=== PATIENT | female | born 2005 | race Caucasian/White ===

== ENCOUNTER 2024-04-01 09:05 | Observation (INO) ==
[2024-04-01] MEDS: SODIUM CHLORIDE 0.9% 1,000 ML IV STA (09:53)
[2024-04-01] MEDS: diphenhydrAMINE 50 MG/ML VIAL IV STA ×2 (09:56→12:05)
[2024-04-01] MEDS: ONDANSETRON INJ 2 MG/ML 2 ML VIAL IV STA (09:57)
[2024-04-01] MEDS: METOCLOPRAMIDE HCL INJ 5 MG/ML 2 ML VIAL IV ONE (09:59)
[2024-04-01] MEDS: HYDROmorphone INJ 0.5 MG/0.5 ML SYR IV STA (10:03)
[2024-04-01 10:11] LABS: Basophils # (auto) 0.03 K/uL (0.00-0.20); Basophils % (auto) 0.4 %; Eosinophils % (auto) 1.2 %; Hemoglobin 12.1 g/dl (12.0-16.0); Immature Granulocytes # (auto) 0.02 K/uL (0.01-0.20); Immature Granulocytes % (auto) 0.2 %; Lymphocytes # (auto) 1.14 K/uL (1.20-3.40); Lymphocytes % (auto) 13.9 %; Mean Corpuscular Hemoglobin 28.4 pg (25.0-34.0); Mean Corpuscular Hgb Conc 33.6 g/dL (32.0-36.0); Mean Corpuscular Volume 84.5 fL (80.0-100.0); Monocytes # (auto) 0.28 K/uL (0.11-0.59); Monocytes % (auto) 3.4 %; Neutrophils # (auto) 6.66 K/uL (1.40-6.50); Neutrophils % (auto) 80.9 %; Platelet Count 306 K/uL (130-400); RDW Coefficient of Variation 12.8 % (11.5-14.5); RDW Standard Deviation 39.3 fL (36.4-46.3); Red Blood Count 4.26 M/uL (4.20-5.40); White Blood Count 8.23 K/ul (4.8-10.8)
[2024-04-01 10:21] LABS: Albumin Globulin Ratio 1.7 (0.9-2); Albumin Level 4.5 gm/dl (3.4-5.0); BUN Creatinine Ratio 23.2 (10-20); Bilirubin,Total 0.7 mg/dl (0.2-1.0); Calcium 9.9 mg/dl (8.6-10.3); Creatinine Clr Calc Pharmacy 141.8 ml/min; Est GFR (African American) 146.3 ml/min; Est GFR (Non-African American) 126.2 ml/min; Globulin 2.6 gm/dl (2.5-4.0); Potassium 3.7 mmol/L (3.5-5.1); Total Protein 7.1 gm/dl (6.0-8.3)
[2024-04-01] MEDS: LORazepam 1 MG/1 ML SYR ED Inj Use IV STA (12:05)
--- NOTE | 2024-04-01 12:58 | History & Physical Report ---
Date of Service April 01, 2024 Assessment & Plan (1) Epigastric abdominal pain: (2) Intractable vomiting with nausea: (3) Acute upper abdominal pain: Plan Acute epigastric abdominal pain/nausea vomiting- Patient has significant family history in mother with gallbladder disease and g astric ulcers Order HIDA scan Full liquid diet as tolerated N.p.o. after midnight Pantoprazole 40 mg IV daily Zofran 4 mg IV every 6 hours as needed LR at 80 mL/h x 2 L Acetaminophen 1 g IV every 8 hours as needed for mild pain or fever If gallbladder workup is negative, patient will need assessment for possible gastric ulcer Her maternal grandfather reportedly had a history of gastric cancer History of Present Illness Chief Complaint: The patient presents to the emergency department complaint of generalized and upper abdominal pain that began about 3 days ago, with intermittent nausea and vomiting Primary Care Provider: Yudelka Beck DO The patient is a 18-year-old female with no significant past medical history who initially presented to the emergency department on 03/11/2024 with similar symptoms of epigastric abdominal pain, nausea and vomiting. She had been doing well for a few weeks, however, symptoms returned the past 3 days, and she presents for reassessment today. Allergies Allergy/AdvReac Type Severity Reaction Status Date / Time No Known Allergies Allergy Unverified 03/11/24 09:57 Home Medications Medication Instructions Recorded Confirmed Type ondansetron 4 mg disintegrating 4 mg PO UD PRN nausea and vomiting 04/01/24 04/01/24 History tablet oxycodone 5 mg tablet 5 mg PO UD PRN pain 04/01/24 04/01/24 History Past Med/Surg History Problem List (Updated 04/01/24 @ 13:27 by Bo Diallo MD) Epigastric abdominal pain (Acute) Intractable vomiting with nausea (Acute) Acute upper abdominal pain (Acute) Medical History No significant past medical history Surgical History History of tonsillectomy and adenoidectomy Social History (Updated 03/11/24 @ 12:02 by Donaldo Jewell) Smoking Status: Never smoker Tobacco Type: E-cigarettes / Vaping Preferred Language: Turkmen marital status: Single current occupational status: student Feels Safe at Home: Yes Review of Systems Review of Systems: The patient denies chest pain, palpitations, shortness of breath, dyspnea on exertion, cough, lower extremity swelling, sore throat, fevers, chills, sweats, blood in urine or stool, dysuria, urinary frequency or urgency, lightheadedness, dizziness, headache, memory loss, loss of consciousness, rash, abnormal bruising or bleeding, imbalance, focal or generalized weakness, numbness or tingling in arms or legs, generalized arthralgias or myalgias, neck pain, or night sweats. The review of systems is otherwise negative other than for that already noted above, and at least 10 systems have been reviewed. Physical Exam Physical Exam: The patient is awake, alert and oriented 3, well developed and well nourished, normocephalic and atraumatic, lying in bed and in no acute distress. HEENT--PERRL, EOMI, mucous membranes and oropharynx dry. Neck--supple. No JVD. No bruits. Thyroid normal, trachea midline, no adenopathy. Heart--normal S1 and S2. No murmurs, rubs or gallops. Lungs--clear bilaterally, no respiratory distress, no accessory muscle use. Abdomen--normal bowel sounds and soft. Nontender. Nondistended, no hernias or masses, no organomegaly. Extremities--no cyanosis or clubbing. No edema. There are good distal pulses b/l. Dermatologic--normal skin turgor, normal color, no abnormal lymph nodes, no rash. Neurologic--cranial nerves II through XII grossly intact. Rheumatologic--normal range of motion. Psychiatric--normal affect. Results & Data Results & Data Vital Signs (Past 12 Hours) Vital Signs Temp Pulse Pulse Resp BP BP Pulse Ox 04/01/24 12:36 69 04/01/24 12:00 66 16 125/88 99 04/01/24 11:41 62 24 98 04/01/24 11:30 118/83 04/01/24 11:00 109/69 04/01/24 10:38 65 19 97 04/01/24 10:30 111/78 04/01/24 10:30 66 16 111/78 98 04/01/24 10:06 74 100 04/01/24 10:00 74 18 128/87 99 04/01/24 09:05 36.6 C 77 18 148/100 H 97 O2 Del Method 04/01/24 12:36 04/01/24 12:00 Room Air 04/01/24 11:41 04/01/24 11:30 04/01/24 11:00 04/01/24 10:38 04/01/24 10:30 04/01/24 10:30 Room Air 04/01/24 10:06 Room Air 04/01/24 10:00 Room Air 04/01/24 09:05 Laboratory Results Laboratory Results WBC 8.23 K/ul (4.8-10.8) 04/01/24 09:45 RBC 4.26 M/uL (4.20-5.40) 04/01/24 09:45 Hgb 12.1 g/dl (12.0-16.0) 04/01/24 09:45 Hct 36.0 % (37.0-47.0) L 04/01/24 09:45 MCV 84.5 fL (80.0-100.0) 04/01/24 09:45 MCH 28.4 pg (25.0-34.0) 04/01/24 09:45 MCHC 33.6 g/dL (32.0-36.0) 04/01/24 09:45 RDW Std Deviation 39.3 fL (36.4-46.3) 04/01/24 09:45 RDW Coeff of John 12.8 % (11.5-14.5) 04/01/24 09:45 Plt Count 306 K/uL (130-400) 04/01/24 09:45 MPV 10.0 fL (9.4-12.4) 04/01/24 09:45 Immature Gran % (Auto) 0.2 % 04/01/24 09:45 Neut % (Auto) 80.9 % 04/01/24 09:45 Lymph % (Auto) 13.9 % 04/01/24 09:45 [place] % (Auto) 3.4 % 04/01/24 09:45 Eos % (Auto) 1.2 % 04/01/24 09:45 Baso % (Auto) 0.4 % 04/01/24 09:45 Neut # (Auto) 6.66 K/uL (1.40-6.50) H 04/01/24 09:45 Lymph # (Auto) 1.14 K/uL (1.20-3.40) L 04/01/24 09:45 [place] # (Auto) 0.28 K/uL (0.11-0.59) 04/01/24 09:45 Eos # (Auto) 0.10 K/uL (0.00-0.50) 04/01/24 09:45 Baso # (Auto) 0.03 K/uL (0.00-0.20) 04/01/24 09:45 Immature Gran # (Auto) 0.02 K/uL (0.01-0.20) 04/01/24 09:45 Sodium 137 mmol/L (136-145) 04/01/24 09:33 Potassium 3.7 mmol/L (3.5-5.1) 04/01/24 09:33 Chloride 107 mmol/L (98-107) 04/01/24 09:33 Carbon Dioxide 23 mmol/L (21-32) 04/01/24 09:33 Anion Gap 7 (3-11) 04/01/24 09:33 BUN 16 mg/dl (6-23) 04/01/24 09:33 Creatinine 0.69 mg/dl (0.6-1.2) 04/01/24 09:33 Est Cr Clr Drug Dosing 141.8 ml/min 04/01/24 09:33 Est GFR ( Amer) 146.3 ml/min 04/01/24 09:33 Est GFR (Non-Af Amer) 126.2 ml/min 04/01/24 09:33 BUN/Creatinine Ratio 23.2 (10-20) H 04/01/24 09:33 Glucose 104 mg/dl (70-99(Fasting)) H 04/01/24 09:33 Calcium 9.9 mg/dl (8.6-10.3) 04/01/24 09:33 Total Bilirubin 0.7 mg/dl (0.2-1.0) 04/01/24 09:33 AST 18 U/L (13-39) 04/01/24 09:33 ALT 18 U/L (7-52) 04/01/24 09:33 Alkaline Phosphatase 68 U/L (34-104) 04/01/24 09:33 Total Protein 7.1 gm/dl (6.0-8.3) 04/01/24 09:33 Albumin 4.5 gm/dl (3.4-5.0) 04/01/24 09:33 Globulin 2.6 gm/dl (2.5-4.0) 04/01/24 09:33 Albumin/Globulin Ratio 1.7 (0.9-2) 04/01/24 09:33 Lipase 27 U/L (11-82) 04/01/24 09:33 Code Status & VTE Plan Code Status Full code VTE Prophylaxis Plan VTE Prophylaxis will be ordered: Yes PG Care Time/CCT Total # of Minutes Spent Total Time Spent with Patient: Total time spent is greater than 50% in coordination of care (as documented) at patient's floor/unit and/or counseling patient: Coding Level of Care Code 11295 INT INP/OBS CARE 2/55MIN Diagnoses Epigastric abdominal pain R10.13 Intractable vomiting with nausea R11.2 Acute upper abdominal pain R10.10
--- NOTE | 2024-04-01 13:27 | Emergency Department Note ---
Impression & Plan Intractable vomiting with nausea, Epigastric abdominal pain ED Provider Note NAME: RAMY MARQUES AGE: 18 SEX: Female INFORMANT: Patient ED PROVIDER(S): Bo Diallo MD CHIEF COMPLAINT: Recurrent abdominal pain and vomiting PLAN: Disposition: Admitted Outpatient prescription management: none Referral: None MEDICAL DECISION MAKING: Patient presented with recurrent nausea and vomiting with upper abdominal pain. She had an IV established. She was treated with IV fluids, Zofran, Reglan, Benadryl as well as a small dose of IV Dilaudid. Repeat imaging was deferred due to evaluation yesterday and on prior visit. Patient was reassessed and was doing somewhat better. Given the intractable symptoms I discussed further management in the hospital. Patient and mother in agreement. We did discuss her frequent marijuana use. I gave my usual and customary discussion regarding this issue. Consultation was made with Dr. Biju Bonner of the [facility] service. Patient was evaluated in the ER for further management. Care/management discussed with: none Level of care consideration(s): After review of the information above and other included data, I feel the patient requires escalation of care to admission Triage Nursing notes: reviewed and agree them. Vital Signs: reviewed and remarkable for no significant abnormalities Additional History obtained from: none Chronic Medical/Social Conditions affecting care: none Prior/ Outside/ External records reviewed: none Differential Diagnosis: Etiologies such as gastroenteritis, food borne illness, infections, appendicitis, diverticulitis, inflammatory bowel disease, GI bleed, biliary pathology, hyperemesis syndrome as well as others were entertained. Diagnostics, independently interpreted by me: ECG: none Cardiac Monitoring: Cardiac monitoring ordered by me: The patient was placed on continuous cardiac monitoring and observed. It revealed a normal sinus rhythm at 69 beats per minute without ectopy or evidence of dysrhythmia. Medical decision rules: none Imaging studies: Deferred HPI: 18 year old Female arrives for evaluation of recurrent nausea and vomiting.. This started a few days ago and is now improved with the home medications prescribed on the visit yesterday. The patient also notes the following associated symptoms, epigastric abdominal pain. The patient has tried Zofran, Phenergan, and oxycodone for relieving factors. Current pain is rated as 8/10. Pt denies LOC, headache, fevers, chills, diaphoresis, visual changes, neck pain, chest pain, breathing difficulties, back pain, melena, hematochezia, urinary symptoms, numbness, weakness, lymphadenopathy, rash, or other complaints.. PAST MEDICAL HISTORY: See Below, PAST SURGICAL HISTORY: See Below, SOCIAL HISTORY: See Below, marijuana use, occasional edible mushroom use HOME MEDICATIONS: See Below ALLERGIES: See Below VITALS: See Below PHYSICAL EXAMINATION: GENERAL: Awake, alert, uncomfortable-appearing, in no distress HENT: Normocephalic, atraumatic. Oropharynx unremarkable. EYES: Normal conjunctiva. Sclera non-icteric. NECK: Inspection normal. Non-tender. Supple. No nuchal rigidity. FROM. No masses. RESPIRATORY: Clear to auscultation. No wheezes. No rales. Normal respiratory effort. CARDIAC: Normal rate. Normal rhythm. No murmurs. No rubs. Extremities warm and well perfused. Pulses equal. No JVD. GI: Soft, non-distended. Epigastric tenderness to palpation. No rebound or guarding. No masses. RECTAL: Deferred. MUSCULOSKELETAL: Atraumatic. Chest examination reveals no tenderness. The back is symmetrical on inspection without obvious abnormality. There is no CVA tenderness to palpation. No joint edema. LOWER EXTREMITIES: Calves are equal size bilaterally and non-tender. No edema. No discoloration. NEURO: Normal sensorium. No sensory or motor deficits noted. SKIN: No rash or jaundice noted. PROCEDURES: none CRITICAL CARE: none OBSERVATION NOTE: none Past Med/Surg History Problem List (Updated 04/01/24 @ 13:27 by Bo Diallo MD) Epigastric abdominal pain (Acute) Intractable vomiting with nausea (Acute) Acute upper abdominal pain (Acute) Medical History No significant past medical history Surgical History History of tonsillectomy and adenoidectomy Social History (Updated 03/11/24 @ 12:02 by Donaldo Jewell) Smoking Status: Never smoker Tobacco Type: E-cigarettes / Vaping Preferred Language: Tajik marital status: Single current occupational status: student Feels Safe at Home: Yes Allergies Allergies Allergy/AdvReac Type Severity Reaction Status Date / Time No Known Allergies Allergy Unverified 03/11/24 09:57 Home Meds Previous Rx's Medication Instructions Recorded ondansetron 4 mg disintegrating 4 mg PO Q6H PRN nausea and 03/11/24 tablet vomiting #10 tabs oxycodone 5 mg tablet 5 mg PO Q4H PRN pain #10 tabs 03/11/24 Results & Data (ED) Vital Signs Vital Signs - 24 hr 04/01/24 09:05 04/01/24 10:00 04/01/24 10:06 Temperature 36.6 C Temperature Source Temporal Artery Scan Pulse Rate 77 74 Pulse Rate [Right Finger] 74 Pulse Rate from SpO2 Sensor Pulse Rhythm Regular Pulse Rhythm [Right Finger] Pulse Strength [Right Finger] Respiratory Rate 18 18 Respiratory Effort / Characteristics Non-Labored Respiratory Depth Normal Respiratory Pattern Regular Blood Pressure 148/100 H Blood Pressure [Left Arm] 128/87 Blood Pressure Mean 116 Blood Pressure Mean [Left Arm] 100 Blood Pressure Position [Left Arm] Pulse Oximetry 97 99 100 Oxygen Delivery Method Room Air Room Air Sepsis Recent Fever Within 48 Hours No Sepsis New/Unexplained Change in Mental Status N/A Sepsis Action Taken by Nursing No Action Required 04/01/24 10:30 04/01/24 10:30 04/01/24 10:38 Temperature Temperature Source Pulse Rate 65 Pulse Rate [Right Finger] 66 Pulse Rate from SpO2 Sensor 65 Pulse Rhythm Pulse Rhythm [Right Finger] Regular Pulse Strength [Right Finger] Normal Respiratory Rate 16 19 Respiratory Effort / Characteristics Non-Labored Respiratory Depth Normal Respiratory Pattern Regular Blood Pressure 111/78 Blood Pressure [Left Arm] 111/78 Blood Pressure Mean 84 Blood Pressure Mean [Left Arm] 89 Blood Pressure Position [Left Arm] Lying Pulse Oximetry 98 97 Oxygen Delivery Method Room Air Sepsis Recent Fever Within 48 Hours Sepsis New/Unexplained Change in Mental Status Sepsis Action Taken by Nursing 04/01/24 11:00 04/01/24 11:30 04/01/24 11:41 Temperature Temperature Source Pulse Rate 62 Pulse Rate [Right Finger] Pulse Rate from SpO2 Sensor 61 Pulse Rhythm Pulse Rhythm [Right Finger] Pulse Strength [Right Finger] Respiratory Rate 24 Respiratory Effort / Characteristics Respiratory Depth Respiratory Pattern Blood Pressure 109/69 118/83 Blood Pressure [Left Arm] Blood Pressure Mean 79 88 Blood Pressure Mean [Left Arm] Blood Pressure Position [Left Arm] Pulse Oximetry 98 Oxygen Delivery Method Sepsis Recent Fever Within 48 Hours Sepsis New/Unexplained Change in Mental Status Sepsis Action Taken by Nursing 04/01/24 12:00 04/01/24 12:36 Temperature Temperature Source Pulse Rate 69 Pulse Rate [Right Finger] 66 Pulse Rate from SpO2 Sensor Pulse Rhythm Pulse Rhythm [Right Finger] Regular Pulse Strength [Right Finger] Normal Respiratory Rate 16 Respiratory Effort / Characteristics Non-Labored Respiratory Depth Normal Respiratory Pattern Regular Blood Pressure Blood Pressure [Left Arm] 125/88 Blood Pressure Mean Blood Pressure Mean [Left Arm] 100 Blood Pressure Position [Left Arm] Pulse Oximetry 99 Oxygen Delivery Method Room Air Sepsis Recent Fever Within 48 Hours Sepsis New/Unexplained Change in Mental Status Sepsis Action Taken by Nursing Laboratory Data 04/01/24 09:45 04/01/24 09:33 Lab Results 04/01/24 04/01/24 Range/Units 09:33 09:45 WBC 8.23 (4.8-10.8) K/ul RBC 4.26 (4.20-5.40) M/uL Hgb 12.1 (12.0-16.0) g/dl Hct 36.0 L (37.0-47.0) % MCV 84.5 (80.0-100.0) fL MCH 28.4 (25.0-34.0) pg MCHC 33.6 (32.0-36.0) g/dL RDW Std Deviation 39.3 (36.4-46.3) fL RDW Coeff of John 12.8 (11.5-14.5) % Plt Count 306 (130-400) K/uL MPV 10.0 (9.4-12.4) fL Immature Gran % (Auto) 0.2 % Neut % (Auto) 80.9 % Lymph % (Auto) 13.9 % [place] % (Auto) 3.4 % Eos % (Auto) 1.2 % Baso % (Auto) 0.4 % Neut # (Auto) 6.66 H (1.40-6.50) K/uL Lymph # (Auto) 1.14 L (1.20-3.40) K/uL [place] # (Auto) 0.28 (0.11-0.59) K/uL Eos # (Auto) 0.10 (0.00-0.50) K/uL Baso # (Auto) 0.03 (0.00-0.20) K/uL Immature Gran # (Auto) 0.02 (0.01-0.20) K/uL Sodium 137 (136-145) mmol/L Potassium 3.7 (3.5-5.1) mmol/L Chloride 107 (98-107) mmol/L Carbon Dioxide 23 (21-32) mmol/L Anion Gap 7 (3-11) BUN 16 (6-23) mg/dl Creatinine 0.69 (0.6-1.2) mg/dl Est Cr Clr Drug Dosing 141.8 ml/min Est GFR ( Amer) 146.3 ml/min Est GFR (Non-Af Amer) 126.2 ml/min BUN/Creatinine Ratio 23.2 H (10-20) Glucose 104 H (70-99(Fasting)) mg/dl Calcium 9.9 (8.6-10.3) mg/dl Total Bilirubin 0.7 (0.2-1.0) mg/dl AST 18 (13-39) U/L ALT 18 (7-52) U/L Alkaline Phosphatase 68 (34-104) U/L Total Protein 7.1 (6.0-8.3) gm/dl Albumin 4.5 (3.4-5.0) gm/dl Globulin 2.6 (2.5-4.0) gm/dl Albumin/Globulin Ratio 1.7 (0.9-2) Lipase 27 (11-82) U/L Administered Medications Sodium Chloride (Nss) 1,000 mls @ 125 mls/hr IV .Q8H STA Stop: 04/01/24 17:29 Last Admin: 04/01/24 09:53 Dose: 125 mls/hr Documented By: HAILE Discontinued Medications Diphenhydramine HCl (Diphenhydramine 50 Mg/Ml Vial) 12.5 mg IV NOW STA Stop: 04/01/24 09:42 Last Admin: 04/01/24 09:56 Dose: 12.5 mg Documented By: HAILE Diphenhydramine HCl (Diphenhydramine 50 Mg/Ml Vial) 25 mg IV NOW STA Stop: 04/01/24 10:24 Last Admin: 04/01/24 12:05 Dose: Not Given Documented By: HAILE Hydromorphone HCl (Hydromorphone Inj 0.5 Mg/0.5 Ml Syr) 0.25 mg IV NOW STA Stop: 04/01/24 09:42 Last Admin: 04/01/24 10:03 Dose: 0.25 mg Documented By: HAILE Lorazepam (Lorazepam 1 Mg/1 Ml Syr Ed Inj Use) 0.5 mg IV ONE STA Stop: 04/01/24 10:24 Last Admin: 04/01/24 12:05 Dose: Not Given Documented By: HAILE Metoclopramide HCl (Metoclopramide Hcl Inj 5 Mg/Ml 2 Ml Vial) 5 mg IV ONE ONE Stop: 04/01/24 09:42 Last Admin: 04/01/24 09:59 Dose: 5 mg Documented By: HAILE Ondansetron HCl (Ondansetron Inj 2 Mg/Ml 2 Ml Vial) 4 mg IV NOW STA Stop: 04/01/24 09:42 Last Admin: 04/01/24 09:57 Dose: 4 mg Documented By: HAILE Discharge Plan Visit Data Chief Complaint: Abdominal Pain Stated Complaint: ABDOMINAL PAIN ED Provider: Bo Diallo Discharge Problem: Intractable vomiting with nausea, Epigastric abdominal pain Forms Stand Alone Forms: [facility] Prescriptions Prescriptions: No Action ondansetron 4 mg tablet,disintegrating 4 mg PO Q6H PRN (Reason: nausea and vomiting) Qty: 10 0RF oxycodone 5 mg tablet 5 mg PO Q4H PRN (Reason: pain) Qty: 10 0RF Referrals Referrals: Yudelka Beck DO [Primary Care Provider] -
[2024-04-01] MEDS: ACETAMINOPHEN 1,000 MG/100 ML VIAL IV PRN (13:42)
[2024-04-01] MEDS: PANTOprazole 40 MG in SYRINGE 0 ML IV ONE (14:04)
[2024-04-01] MEDS: LACTATED RINGER'S 1,000 ML IV SCH (14:08)
[2024-04-01] MEDS: ONDANSETRON INJ 2 MG/ML 2 ML VIAL IV PRN ×2 (18:19→23:02)
[2024-04-02] MEDS: PROMETHAZINE HCL 12.5 MG in SODIUM CHLORIDE 0.9% 50 ML IV STA (00:30)
[2024-04-02 08:43] LABS: Basophils # (auto) 0.06 K/uL (0.00-0.20); Eosinophils # (auto) 0.07 K/uL (0.00-0.50); Eosinophils % (auto) 1.1 %; Hematocrit (blood only) 33.6 % (37.0-47.0); Hemoglobin 11.4 g/dl (12.0-16.0); Immature Granulocytes # (auto) 0.02 K/uL (0.01-0.20); Immature Granulocytes % (auto) 0.3 %; Lymphocytes # (auto) 1.89 K/uL (1.20-3.40); Lymphocytes % (auto) 30.1 %; Mean Corpuscular Hgb Conc 33.9 g/dL (32.0-36.0); Mean Corpuscular Volume 82.6 fL (80.0-100.0); Mean Platelet Volume 10.2 fL (9.4-12.4); Monocytes # (auto) 0.48 K/uL (0.11-0.59); Monocytes % (auto) 7.6 %; Neutrophils # (auto) 3.76 K/uL (1.40-6.50); Neutrophils % (auto) 59.9 %; Platelet Count 308 K/uL (130-400); RDW Coefficient of Variation 12.6 % (11.5-14.5); RDW Standard Deviation 37.9 fL (36.4-46.3); Red Blood Count 4.07 M/uL (4.20-5.40); White Blood Count 6.28 K/ul (4.8-10.8)
[2024-04-02 08:46] LABS: Albumin Level 4.2 gm/dl (3.4-5.0); Bilirubin,Total 0.9 mg/dl (0.2-1.0); Calcium 9.7 mg/dl (8.6-10.3); Potassium 3.9 mmol/L (3.5-5.1)
[2024-04-02 08:52] LABS: Albumin Globulin Ratio 1.6 (0.9-2); BUN Creatinine Ratio 18.8 (10-20); Creatinine Clr Calc Pharmacy 152.9 ml/min; Est GFR (African American) 149.9 ml/min; Est GFR (Non-African American) 129.4 ml/min; Globulin 2.7 gm/dl (2.5-4.0); Total Protein 6.9 gm/dl (6.0-8.3)
[2024-04-02] MEDS: PANTOprazole 40 MG in SYRINGE 0 ML IV SCH ×2 (10:45→19:59)
[2024-04-02] MEDS: PROMETHAZINE HCL 12.5 MG in SODIUM CHLORIDE 0.9% 50 ML IV PRN (10:45)
[2024-04-02] MEDS: SINCALIDE 1.6 MCG in 0.9 % SODIUM CHLORIDE 100 ML IV ONE (15:47)
--- NOTE | 2024-04-02 16:29 | Hospitalist Progress Note ---
Date of Service April 02, 2024 Assessment & Plan (1) Epigastric abdominal pain: Plan: Patient presented to ED on 04/01 with chief complaints of nausea/vomiting/epigastric abdominal pain. Admitted for observation for further workup -CTAP reviewed 04/01: negative -RUQ US reviewed 04/01: negative -HIDA scan reviewed 04/02: decreased gallbladder EF at 22%. negative for acute cholecystitis -CMP reviewed 04/02: unremarkable -CBC reviewed 04/02: hgb 11.4, likely dilutional -Zofran and Phenergan prn for nausea. -PPI BID -tylenol prn for pain/fever -advanced to clear liquid diet, if tolerates can have regular diet in AM -patient will likely need outpatient general surgery follow up as she does have findings consistent with biliary dyskinesia but not acute cholecystitis. -negative Crawley's sign -pain in epigastric region -consider outpatient GI referral as well. AM CBC, BMP (2) Intractable vomiting with nausea: Plan: see plan above Plan Diet: clear liquid Code: full Disposition: continued inpatient stay, anticipate discharge 04/02 pending pain/nausea control DVT prophylaxis: SCD's updated mother at bedside 04/02 Admission and Anticipated Discharge Date Admission Date: April 01, 2024 Supervising Physician Co-Signing Physician Notes The patient was not seen by me. The chart was reviewed. Case discussed with LIBRA Ball. Agree with assessment and plan Subjective Patient seen and examined with mother present at bedside. Patient reported to be feeling nauseous at time of encounter but denied any vomiting. She states it has been ongoing for about 3 days. She notes pain is most severe in her epigastric region. She states this has happened in the past but not this severe. She does use marijuana daily. Denies alcohol or other illicit substance use. reports daily BM Physical Exam 2 Constitutional: WD/WN, vitals as above Eyes: PERRL, conjunctivae normal, anicteric sclerae Respiratory: normal respiratory effort, lungs clear to auscultation Cardiovascular: RRR, no murmur, no edema Gastrointestinal (Abdomen): + BS, epigastric tenderness. negative mu rphy sign. Results & Data Results & Data Vital Signs (Past 12 Hours) Vital Signs Temp Pulse Resp BP Pulse Ox O2 Del Method 04/02/24 15:50 36.7 C 63 16 131/81 100 Room Air 04/02/24 07:31 36.6 C 59 L 18 125/85 100 Room Air Laboratory Results 04/02/24 07:03 04/02/24 07:03 Diagnostic Findings Hepatobiliary Scan Nuclear Medicine 04/02/24 12:56 NM hepatobiliary EF CLINICAL HISTORY: Epigastric and RUQ pain. COMPARISON STUDY: Right upper quadrant ultrasound and CT of the abdomen and pelvis March 31, 2024. TECHNIQUE: 5 mCi of technetium 99m Choletec was injected IV at 1:30 PM on April 02, 2024. Following injection, imaging of the abdomen was carried out for 60 minutes. At this time, 1.6 mcg of sincalide was injected IV as per protocol and imaging was carried out for an additional 40 minutes to calculate gallbladder ejection fraction. FINDINGS: Hepatic uptake of radiotracer is prompt and homogeneous. Activity is identified within the common bile duct and small bowel at 15 minutes. Radiotracer within the gallbladder is noted at 40 minutes. Following injection of sincalide, gallbladder ejection fraction was calculated at 22%. Normal is greater than 30-35%. IMPRESSION: 1. No evidence for acute cholecystitis. 2. Mildly diminished gallbladder fraction of 22%. This raises the possibility of gallbladder dyskinesia. ACT 112: Negative or not required by law. Electronically signed by: Ricardo Ervin M.D. 04/02/2024 4:30 PM PG Care Time/CCT Total # of Minutes Spent Total Time Spent with Patient: Total time spent is greater than 50% in coordination of care (as documented) at patient's floor/unit and/or counseling patient: Coding Level of Care Code 90483 SUB INP/OBS CARE 3/50MIN Diagnoses Epigastric abdominal pain R10.13 Intractable vomiting with nausea R11.2
--- NOTE | 2024-04-02 16:31 | Nuclear Medicine Report ---
NM hepatobiliary EF CLINICAL HISTORY: Epigastric and RUQ pain. COMPARISON STUDY: Right upper quadrant ultrasound and CT of the abdomen and pelvis March 31, 2024. TECHNIQUE: 5 mCi of technetium 99m Choletec was injected IV at 1:30 PM on April 02, 2024. Following i njection, imaging of the abdomen was carried out for 60 minutes. At this time, 1.6 mcg of sincalide w as injected IV as per protocol and imaging was carried out for an additional 40 minutes to calculate gallbladder ejection fraction. FINDINGS: Hepatic uptake of radiotracer is prompt and homogeneous. Activity is identified within the common bile duct and small bowel at 15 minutes. Radiotracer within the gallbladder is noted at 40 min utes. Following injection of sincalide, gallbladder ejection fraction was calculated at 22%. Normal i s greater than 30-35%. IMPRESSION: 1. No evidence for acute cholecystitis. 2. Mildly diminished gallbladder fraction of 22%. This raises the possibility of gallbladder dyskines ia. ACT 112: Negative or not required by law. Electronically signed by: Ricardo Ervin M.D. 04/02/2024 4:30 PM
[2024-04-02 20:53] VITALS: RESP 18; O2SAT 98
[2024-04-03 07:39] VITALS: BP 133/88; PULSE 69; TEMP 97.9
[2024-04-03 09:42] LABS: Basophils # (auto) 0.05 K/uL (0.00-0.20); Basophils % (auto) 0.7 %; Eosinophils # (auto) 0.08 K/uL (0.00-0.50); Eosinophils % (auto) 1.1 %; Hematocrit (blood only) 36.3 % (37.0-47.0); Hemoglobin 12.3 g/dl (12.0-16.0); Immature Granulocytes # (auto) 0.02 K/uL (0.01-0.20); Immature Granulocytes % (auto) 0.3 %; Lymphocytes # (auto) 1.14 K/uL (1.20-3.40); Lymphocytes % (auto) 15.8 %; Mean Corpuscular Hgb Conc 33.9 g/dL (32.0-36.0); Mean Corpuscular Volume 82.7 fL (80.0-100.0); Monocytes # (auto) 0.38 K/uL (0.11-0.59); Monocytes % (auto) 5.3 %; Neutrophils # (auto) 5.56 K/uL (1.40-6.50); Neutrophils % (auto) 76.8 %; Platelet Count 318 K/uL (130-400); RDW Coefficient of Variation 12.6 % (11.5-14.5); RDW Standard Deviation 38.1 fL (36.4-46.3); Red Blood Count 4.39 M/uL (4.20-5.40); White Blood Count 7.23 K/ul (4.8-10.8)
[2024-04-03 10:01] LABS: Albumin Globulin Ratio 1.6 (0.9-2); Albumin Level 4.7 gm/dl (3.4-5.0); BUN Creatinine Ratio 23.9 (10-20); Bilirubin,Total 1.1 mg/dl (0.2-1.0); Calcium 9.9 mg/dl (8.6-10.3); Est GFR (African American) 147.7 ml/min; Est GFR (Non-African American) 127.4 ml/min; Globulin 2.9 gm/dl (2.5-4.0); Magnesium 2.1 mg/dl (1.7-2.4); Potassium 3.8 mmol/L (3.5-5.1); Total Protein 7.6 gm/dl (6.0-8.3)
--- NOTE | 2024-04-03 11:30 | Discharge Summary ---
Discharge Summary Date of Service April 03, 2024 Principal Dx & Hospital Course #1 = Principal Diagnosis (1) Epigastric abdominal pain: Patient presented to ED on 04/01 with chief complaints of nausea/vomiting/epigastric abdominal pain. Admitted for observation for further workup. Patient underwent CTAP and US that were both negative. HIDA scan significant for gallbladder ejection fraction of 22% and negative for acute cholecystitis. CMP on day of discharge revealed mild total bili elevation of 1.1 but remainder WNL. WBC and hgb WNL as well. Did discuss w/ surgery via [facility] who recommended outpatient follow up for discussion of rekha prescottey. Patient was given zofran and phenergan for nausea while inpatient and discharged home with some. She was encouraged to take zofran 30 minutes prior to meals, PPI BID, and Carafate four times daily. If symptoms do not resolve following lap choley outpatient, could also consider a GI referral. She is to follow up closely with PCP. (2) Intractable vomiting with nausea: see plan above Plan updated family at bedside 04/03. Admission HPI Per Admitting Provider The patient is a 18-year-old female with no significant past medical history who initially presented to the emergency department on 03/11/2024 with similar symptoms of epigastric abdominal pain, nausea and vomiting. She had been doing well for a few weeks, however, symptoms returned the past 3 days, and she presents for reassessment today. Discharge Exam Constitutional WD/WN, vitals as above Eyes PERRL, conjunctivae normal, anicteric sclerae Respiratory normal respiratory effort, lungs clear to auscultation Cardiovascular RRR, no murmur, no edema Gastrointestinal (Abdomen) +epigastric pain, + BS Skin no rashes, warm and dry Psychiatric A+Ox3, euthymic affect Updated Medication List Medication Instructions Recorded Confirmed Type oxycodone 5 mg tablet 5 mg PO UD PRN pain 04/01/24 04/01/24 History ondansetron 4 mg disintegrating 4 mg PO .prn #30 tabs 04/03/24 Rx tablet pantoprazole 40 mg tablet,delayed 40 mg PO BID #60 tabs 04/03/24 Rx release promethazine 12.5 mg tablet 12.5 mg PO Q6H PRN allergy 04/03/24 Rx symptoms #30 tabs sucralfate 1 gram tablet (Carafate) 1 g PO QID #60 tabs 04/03/24 Rx Hospital Stay Data Consultations 04/01/24 12:30 ED Decision to Admit Stat Pending Results Patient Have Any Pending Studies at Discharge: No Discharge Instructions Given to Patient (Per Discharging Provider) Miss. Ribeiro, Mian were recently hospitalized for abdominal pain, nausea, and vomiting. You underwent several imaging studies including a CAT scan and ultrasound of your abdomen. These were unrevealing. You also underwent a HIDA scan to check your gallbladder which is under performing. Please see recommendations regarding your discharge. 1. Please take pantoprazole 40mg twice daily. Your next dose will be this evening 04/03. 2. Please take Carafate 4 times daily. This is prior to meals and before bed. Your next dose will be this evening prior to dinner 3. Please use Zofran or Phenergan 30 minutes prior to meals to reduce nausea. 4. You may use Zofran or Phenergan every 4 hours as needed for nausea/vomiting. 5. Someone will be in contact with you regarding an appointment with the surgeon. Please follow up with your PCP within 1-2 weeks. If you experience any worsening of symptoms including vomiting blood, blood in stool, or severe abdominal pain please report to the ER for further evaluation. Sincerely, Mary Kay Newman PA-C Total Time Total Time Spent Total Time Spent (In Minutes): 35 Total Time Includes: Examination of the Patient, Discharge Planning, Medication Reconciliation and Communication With Other Providers Supervising Physician Co-Signing Physician Notes During face to face encounter, I obtained a brief physical examination, discussed hospital stay with patient and discharge instructions with patient. I discussed discharge plan of care with SAMANTHA Newman I reviewed above note and agree with it except for the following: General surgery recommend lap josue as an outpatient. If symptoms do not resolve, will need to followup with GI. Coding Level of Care Code 02517 INP/OBS DISCH >30 MIN Diagnoses Epigastric abdominal pain R10.13 Intractable vomiting with nausea R11.2
--- OUTSIDE RECORDS SUMMARY | 2024-04-03 17:50 | External Medical Summary | Continuity of Care Document ---
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 Name Role Phone Naye Mercado Primary Care Physician [phone] [phone] Date(s): 03/30/24 - 03/30/24 [facility] [address] [facility] [address] [facility], [facility] [address] [place] [address] [phone] Encounter Diagnosis Abdominal pain(Discharge Diagnosis) - 03/30/24 Discharge Disposition: Home or Self Care Attending Physician: DO Beck Stephanie Marie Allergies, Adverse Reactions, Alerts No Known Allergies Assessment and Plan Extracted from: Title:FCM: abd pain Author:DO Beck Stephanie Marie Date:03/30/24 1.Abdominal pain Undiagnosed problem Goal: resolution Data: US abdomen Plan: Reviewed ER note from 03/11/[address] imaging -- labs unrevealing with normal WBC, no anemia, normal electrolytes, normal LFT, normal UA, and negative test. Patient's pain is generalized without focal finding. Encouraged patient to keep journal to include pain episodes, dietary intake, and menses. Recommend that patient trial Zofran, Ibuprofen 800mg, and Tylenol 1000mg poprn pain. Return precautions provided. Signs/symptoms that would necessitate emergent evaluation in the ER including worsening abdominal pain, vomiting, inability to tolerate po intakereviewed with patient and mom. F/u pending results of imaging. Inclusive of time spent reviewing the medical record, [id number] time with the patient, and time spent in documentation, the total time spent on this encounter today was 34 minutes. Immunizations Given and Recorded Vaccine Date Status Refusal Reason meningococcal conjugate vaccine 05/11/22 Given meningococcal conjugate vaccine 05/11/17 Given SARS-CoV-2 mRNA (tozinameran 5y-11y) 01/20/21 Matt rded SARS-CoV-2 mRNA (tozinameran 5y-11y) 12/30/20 Matt rded human papillomavirus vaccine 12/11/20 Given human papillomavirus vaccine 07/31/20 Given human papillomavirus vaccine 05/29/20 Given tetanus/diphtheria/pertuss, acel (Tdap) 05/11/17 G iven influenza virus vaccine, inactivated 1 10/09/15 Re corded influenza virus vaccine, inactivated 2 05/25/12 Re corded influenza virus vaccine, inactivated 3 05/14/11 Re corded influenza virus vaccine, inactivated 4 06/19/08 Re corded influenza virus vaccine, inactivated 5 08/01/07 Re corded influenza virus vaccine, inactivated 6 11/09/06 Re corded influenza virus vaccine, inactivated 7 09/07/05 Re corded influenza virus vaccine, inactivated 8 08/10/05 Re corded poliovirus vaccine, inactivated 9 05/06/10 Recorde d poliovirus vaccine, inactivated 10 05/10/05 Record ed poliovirus vaccine, inactivated 11 03/08/05 Record ed poliovirus vaccine, inactivated 12 01/04/05 Record ed diphtheria/tetanus/pertuss, acel (DTaP) 13 05/06/10 Recorded diphtheria/tetanus/pertuss, acel (DTaP) 14 05/10/05 Recorded diphtheria/tetanus/pertuss, acel (DTaP) 15 03/08/05 Recorded diphtheria/tetanus/pertuss, acel (DTaP) 16 01/04/05 Recorded varicella virus vaccine 17 11/05/08 Recorded measles/mumps/rubella virus vaccine 18 11/05/08 Re corded hepatitis A pediatric vaccine 19 11/09/06 Recorded hepatitis A pediatric vaccine 20 05/12/06 Recorded pneumococcal 7-valent vaccine 21 02/07/06 Recorded pneumococcal 7-valent vaccine 22 05/10/05 Recorded pneumococcal 7-valent vaccine 23 03/08/05 Recorded pneumococcal 7-valent vaccine 24 01/04/05 Recorded measles/mumps/rubella/varicella vaccine 25 11/10/05 Recorded hepatitis B pediatric vaccine 26 08/10/05 Recorded hepatitis B pediatric vaccine 27 01/04/05 Recorded hepatitis B pediatric vaccine 28 04 Recorded hepatitis B pediatric vaccine 29 04 Recorded diphther/haemophil/pertuss,acel/tetanus 30 02/07/05 Recorded 1Result Comment: 2017-05-11: Historical information-source unspecified 2Result Comment: 2017-05-11: Historical information-source unspecified 3Result Comment: 2017-05-11: Historical information-source unspecified 4Result Comment: 2017-05-11: Historical information-source unspecified 5Result Comment: 2017-05-11: Historical information-source unspecified 6Result Comment: 2017-05-11: Historical information-source unspecified 7Result Comment: 2017-05-11: Historical information-source unspecified 8Result Comment: 2017-05-11: Historical information-source unspecified 9Result Comment: 2017-05-11: Historical information-source unspecified 10Result Comment: 2017-05-11: Historical information-source unspecified 11Result Comment: 2017-05-11: Historical information-source unspecified 12Result Comment: 2017-05-11: Historical information-source unspecified 13Result Comment: 2017-05-11: Historical information-source unspecified 14Result Comment: 2017-05-11: Historical information-source unspecified 15Result Comment: 2017-05-11: Historical information-source unspecified 16Result Comment: 2017-05-11: Historical information-source unspecified 17Result Comment: 2017-05-11: Historical information-source unspecified 18Result Comment: 2017-05-11: Historical information-source unspecified 19Result Comment: 2021-09-15: Historical information-source unspecified 20Result Comment: 2021-09-15: Historical information-source unspecified 21Result Comment: 2017-05-11: Historical information-source unspecified 22Result Comment: 2017-05-11: Historical information-source unspecified 23Result Comment: 2017-05-11: Historical information-source unspecified 24Result Comment: 2017-05-11: Historical information-source unspecified 25Result Comment: 2017-05-11: Historical information-source unspecified 26Result Comment: 2017-05-11: Historical information-source unspecified 27Result Comment: 2017-05-11: Historical information-source unspecified 28Result Comment: 2017-05-11: Historical information-source unspecified 29Result Comment: 2017-05-11: Historical information-source unspecified 30Result Comment: 2017-05-11: Historical information-source unspecified Medications No Known Medications Mental Status 03/30/24 Barriers to Learning one year None evide nt Mandatory Health Literacy Documentation Yes Health Literacy Communication Barriers N ever Primary Language Palauan Problem List Condition Confirmation Course Effective Dates Status Health St atus Informant Anxiety Confirmed Active Depression Confirmed Active Stomach pain Confirmed Active Diagnosis Diagnosis Type Effective Dates Health Status 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 Abdominal pain Discharge Diagnosis 03/30/24 Non-Specified Vital Signs Most recent to oldest [Reference Range]: 1 Height 179.5 cm (03/30/24 2:35 PM) Patient Weight 81.2 kg (03/30/24 2:35 PM) Body Mass Index 25.2 kg/m2 (03/30/24 2:35 PM) Heart Rate 62 bpm (03/30/24 2:35 PM) Respiratory Rate 18 br/min (03/30/24 2:35 PM) Blood Pressure 102/66mmHg (03/30/24 2:35 PM) Cuff Pulse Pressure 36 mmHg (03/30/24 2:35 PM) Weight Z-Score 1.59 1 (03/30/24 2:35 PM) Weight Percentile 94.45 2 (03/30/24 2:35 PM) Height/Length Z-Score 2.51 3 (03/30/24 2:35 PM) Height New Percentile 99.40 4 (03/30/24 2:35 PM) 1Result Comment: ^~:!ZScore Source -[facility]-WHO 2Result Comment: ^~:!Percentile Source -CDC-WHO 3Result Comment: ^~:!ZScore Source -CDC-WHO 4Result Comment: ^~:!Percentile Source -[facility]-WHO Social History Social History Type Response Smoking Status Never smoked cigaret alex Sex Female Sex Representation Female (finding) FCM Outpt Note * DO Beck Stephanie Marie: PERFORM, MODIFY Event Display: FCM Outpt Note Authored Date: [id number] Chief Complaint stomach pain for about two weeks. was seen two weeks ago in ED. was given zofran, toradol, and fluids. normal bms. History of Present Illness 18 yo female presenting to the office for acute visit for abdominal pain. has had intermittent abdominal pain throughout high school -- would wake up and vomit anxiety response to school has improved; no further concern about anxiety no current stressor noted; no schooling, no job, enjoying the summer about 2 weeks ago, woke up with abdpain 4 days in a row entire stomach, mid belly button and up abd pain described as a squeezing pain, 6/10 with waves up to 10/10 sleeping helps to improve pain; no other mitigating factors she has not trialed Tylenol or Ibuprofen during episodes of pain + associated nausea/vomiting has been using ODT Zofran with benefit was seen in the ER on 03/11/24 due to the pain -- had labs that were unrevealing and imaging that showed mild adenitis with a few prominent ileocolic lymph nodes; no appendicitis; no hydronephrosis,bowel wall thickening, or obstruction no hx ofabdominal surgeries no specific association with food no dietary changes -- typical diet fruits, vegetables, meat (chicken, fish, beef), greens, dairy (milk, yogurt, cheese) LMP 03/23/24 (notes was 10 days late); typical cycle is 42 days periods last 5-6 days no bowel habit changes -- no diarrhea, constipation, change in stool habits, change in stool consistency is on OCP but no other daily medications no allergies to medications patient is not currently sexually active; last sexual activity > 2 months ago no vaginal discharge, no vaginal lesions/concerns no hx of STD/infection denies alcohol use currently + daily marijuana use/vaping Physical Exam Vitals & Measurements HR:62(Monitored) RR:18 BP:102/66 SpO2:98% HT:179.5cm WT:81.2kg WT:81.200kg(Dosing) BMI:25.2 PHQ2 Data(Data Documented on:03/30/2024 14:33) Emotional health assessment NEGATIVE GENERAL: No acute distress. Well developed and well nourished. Vital signs reviewed as above. EYES: EOMI. Anicteric sclerae. HENT: Moist mucous membranes. RESPIRATORY: Clear to auscultation bilaterally.No wheezing, rales, orrhonchi. CARDIOVASCULAR: Regularrate and rhythm.No murmurs. ABDOMEN: Soft. Normal bowel sounds. Non-distended. No peritoneal signs. Diffuse tenderness to palpation. No rebound or guarding. EXTREMITIES: No gross deformities. SKIN: Warm, dry. NEUROLOGIC: Alert and oriented. Normal speech. No gross focal neurological deficits. PSYCHIATRIC: Cooperative. Appropriate mood and affect. Assessment/Plan 1.Abdominal pain Undiagnosed problem Goal: resolution Data: US abdomen Plan: Reviewed ER note from 03/11/[address] imaging -- labs unrevealing with normal WBC, no anemia, normal electrolytes, normal LFT, normal UA, and negative test. Patient's pain is generalized without focal finding. Encouraged patient to keep journal to include pain episodes, dietary intake, and menses. Recommend that patient trial Zofran, Ibuprofen 800mg, and Tylenol 1000mg poprn pain. Return precautions provided. Signs/symptoms that would necessitate emergent evaluation in the ER including worsening abdominal pain, vomiting, inability to tolerate po intakereviewed with patient and mom. F/u pending results of imaging. Inclusive of time spent reviewing the medical record, [id number] time with the patient, and time spent in documentation, the total time spent on this encounter today was 34 minutes. Problem List/Past Medical History Ongoing Anxiety Depression Stomach pain Allergies NKA Social History Smoking Status Never smoked cigarettes Employment/School Status:Student Description:[employer]; wants to learn [employer] Home/Environment Lives with:Father, Mother Living situation:Home/Independent Sexual - No Sexual Activity Immunizations Vaccine Date Status meningococcal conjugate vaccine 05/11/2022 Given SARS-CoV-2 mRNA (tozinameran 5y-11y) 01/20/2021 Recorded SARS-CoV-2 mRNA (tozinameran 5y-11y) 12/30/2020 Recorded human papillomavirus vaccine 12/11/2020 Given human papillomavirus vaccine 07/31/2020 Given human papillomavirus vaccine 05/29/2020 Given tetanus/diphtheria/pertuss, acel (Tdap) 05/11/2017 Given meningococcal conjugate vaccine 05/11/2017 Given influenza virus vaccine, inactivated 10/09/2015 Recorded Comments : 2017-05-11: Historical information-source unspecified influenza virus vaccine, inactivated 05/25/2012 Recorded Comments : 2017-05-11: Historical information-source unspecified influenza virus vaccine, inactivated 05/14/2011 Recorded Comments : 2017-05-11: Historical information-source unspecified poliovirus vaccine, inactivated 05/06/2010 Recorded Comments : 2017-05-11: Historical information-source unspecified diphtheria/tetanus/pertuss, acel (DTaP) 05/06/2010 Recorded Comments : 2017-05-11: Historical information-source unspecified varicella virus vaccine 11/05/2008 Recorded Comments : 2017-05-11: Historical information-source unspecified measles/mumps/rubella virus vaccine 11/05/2008 Recorded Comments : 2017-05-11: Historical information-source unspecified influenza virus vaccine, inactivated 06/19/2008 Recorded Comments : 2017-05-11: Historical information-source unspecified influenza virus vaccine, inactivated 08/01/2007 Recorded Comments : 2017-05-11: Historical information-source unspecified influenza virus vaccine, inactivated 11/09/2006 Recorded Comments : 2017-05-11: Historical information-source unspecified hepatitis A pediatric vaccine 11/09/2006 Recorded Comments : 2021-09-15: Historical information-source unspecified hepatitis A pediatric vaccine 05/12/2006 Recorded Comments : 2021-09-15: Historical information-source unspecified pneumococcal 7-valent vaccine 02/07/2006 Recorded Comments : 2017-05-11: Historical information-source unspecified measles/mumps/rubella/varicella vaccine 11/10/2005 Recorded Comments : 2017-05-11: Historical information-source unspecified influenza virus vaccine, inactivated 09/07/2005 Recorded Comments : 2017-05-11: Historical information-source unspecified influenza virus vaccine, inactivated 08/10/2005 Recorded Comments : 2017-05-11: Historical information-source unspecified hepatitis B pediatric vaccine 08/10/2005 Recorded Comments : 2017-05-11: Historical information-source unspecified poliovirus vaccine, inactivated 05/10/2005 Recorded Comments : 2017-05-11: Historical information-source unspecified pneumococcal 7-valent vaccine 05/10/2005 Recorded Comments : 2017-05-11: Historical information-source unspecified diphtheria/tetanus/pertuss, acel (DTaP) 05/10/2005 Recorded Comments : 2017-05-11: Historical information-source unspecified poliovirus vaccine, inactivated 03/08/2005 Recorded Comments : 2017-05-11: Historical information-source unspecified pneumococcal 7-valent vaccine 03/08/2005 Recorded Comments : 2017-05-11: Historical information-source unspecified diphtheria/tetanus/pertuss, acel (DTaP) 03/08/2005 Recorded Comments : 2017-05-11: Historical information-source unspecified diphther/haemophil/pertuss,acel/tetanus 02/07/2005 Recorded Comments : 2017-05-11: Historical information-source unspecified poliovirus vaccine, inactivated 01/04/2005 Recorded Comments : 2017-05-11: Historical information-source unspecified pneumococcal 7-valent vaccine 01/04/2005 Recorded Comments : 2017-05-11: Historical information-source unspecified hepatitis B pediatric vaccine 01/04/2005 Recorded Comments : 2017-05-11: Historical information-source unspecified diphtheria/tetanus/pertuss, acel (DTaP) 01/04/2005 Recorded Comments : 2017-05-11: Historical information-source unspecified hepatitis B pediatric vaccine 2004 Recorded Comments : 2017-05-11: Historical information-source unspecified hepatitis B pediatric vaccine 2004 Recorded Comments : 2017-05-11: Historical information-source unspecified Recommendations Health Maintenance Pending(in the next year) OverDue Body Mass Index due10/20/23and every 366day Adult Influenza Vaccine due02/26/24and every 1year Due Adult COVID-19 Vaccination due03/30/24Unknown Frequency Adult Folic Acid Supplementation due03/30/24and every 3year Adult Social Determinants of Health Screening due03/30/24Unknown Frequency Hepatitis C Screening due03/30/24One-time only Satisfied(in the past 1 year) Satisfied Body Mass Index on03/30/24.Satisfied by THOMAS Burton Kyla Electronic Signature on File Electronically Reviewed/Signed by: Yudelka Beck DO Author Signature Dt/Tm:03/30/2024 03:39 PM Department of Family Medicine Electronically Reviewed/Signed by: Yudelka Beck DO Cosigner Signature Dt/Tm: 03/30/2024 03:42 PM Department of Family Medicine SMB Patient Care team information Care Team Related Persons Name: ESTEBANASAD Hernández
== END 2024-04-03 13:15 | disposition home or self-care (01) ==
LOC: 3W 09:05 → ED 09:05 → SUATTDRO 12:56 → 3W 14:51